=== PATIENT | female | born 1955 | race Caucasian/White ===

== ENCOUNTER 2017-01-28 08:15 | Inpatient (IN) | payer OTHER ==
[~2017-01-28] VITALS: Ht 158 cm; Wt 129.8 kg
[2017-01-28 11:20] LABS: BILIRUBIN NEGATIVE (NEGATIVE); BLOOD NEGATIVE Ery/uL (NEGATIVE); CLARITY CLEAR (CLEAR); COLOR YELLOW (YELLOW); GLUCOSE (U) NORMAL (NORMAL); KETONE (U) NEGATIVE (NEGATIVE); LEUKOCYTES NEGATIVE Leu/uL (NEGATIVE); NITRITE NEGATIVE (NEGATIVE); PROTEIN NEGATIVE (NEGATIVE); UROBILINOGEN 0.2 mg/dL (0.2-1.0); pH 5.5 (5.0-9.0)
[2017-01-29 03:39] LABS: HCT 38.6 % (37.0-47.0); HGB 12.5 g/dl (12.5-16.0); MCH 29.4 pg (25.0-31.0); MCHC 32.4 g/dL (32.0-36.0); MCV 90.8 fL (78.0-100.0); MPV 10.7 fL (6.0-9.5); RBC 4.25 M/uL (4.20-5.40); RDW 14.3 % (11.5-14.0); WBC 10.8 K/uL (4.0-10.5)
[2017-01-29 04:00] LABS: CREATININE 0.8 mg/dL (0.5-1.0); POTASSIUM 4.2 mmol/L (3.5-5.1)
[2017-01-31] MEDS ORDERED: CETIRIZINE HCL10 MG PO (09:53)
[2017-01-31] MEDS ORDERED: LISINOPRIL-HCT1 EAC1 PO (09:54)
[2017-01-31] MEDS ORDERED: CERTAGEN1 EACH PO (09:54)
[2017-01-31] MEDS ORDERED: OMEPRAZOLE40 MG PO (09:54)
[2017-01-31] MEDS ORDERED: TRAZODONE 50MG50 MG PO (09:55)
[2017-01-31] MEDS ORDERED: CELEXA20 MG PO (09:55)
--- NOTE | 2017-01-31 15:03 | NUR ---
PT TAKEN FROM TCU VIA WHEELCHAIR. OXYGEN ON @2L NC UPON DISCHARGE. VITALS STABLE AT THIS TIME.
== END 2017-01-31 14:55 | disposition home or self-care (01) | DRG 621 ==
LOC: FMS 08:15 → FTCU 11:13
PROVIDERS: ADMIT Surgery
PROC: 0DB64Z3 Excision of Stomach, Percutaneous Endoscopic Approach, Vertical (ICD-10-PCS; principal; 2017-01-28 08:15)
PROC: 0DJ08ZZ Inspection of Upper Intestinal Tract, Via Natural or Artificial Opening Endoscopic (ICD-10-PCS; 2017-01-28 08:15)
DX: E66.01 Morbid (severe) obesity due to excess calories (principal); I10 Essential (primary) hypertension; G47.33 Obstructive sleep apnea (adult) (pediatric); F41.9 Anxiety disorder, unspecified; F32.9 Major depressive disorder, single episode, unspecified; K21.9 Gastro-esophageal reflux disease without esophagitis; E55.9 Vitamin D deficiency, unspecified; N85.01 Benign endometrial hyperplasia; F17.210 Nicotine dependence, cigarettes, uncomplicated; Z88.5 Allergy status to narcotic agent; Z68.43 Body mass index [BMI] 50.0-59.9, adult; Z79.899 Other long term (current) drug therapy; Z88.1 Allergy status to other antibiotic agents
CPT/HCPCS: 36415; 74240; 80048; 81003; 82150; 82962; 86850; 86900; 86901; 88307; 94010; 94667; 94668; 94762; 97116; 97161; 97166; 97530; 97530-GP; 97535; J0131; J0690; J1170; J1980; J2405; J2704; J2710; J3010; J3411; J3475